=== PATIENT | male | born 1980 | race Caucasian/White ===

== ENCOUNTER 2018-03-08 22:31 | Emergency (ER) | payer SELFPAY ==
[~2018-03-08] VITALS: Ht 180.3 cm; Wt 70.5 kg
[~2018-03-08 22:31] MED LIST: NAPROSYN500 MG PO; PEN-VEE K,VEET500 MG PO
[2018-03-09 00:29] VITALS: BP 143/90
== END 2018-03-09 00:30 | disposition home or self-care (01) ==
LOC: EME 22:31
PROC: 2W3RX1Z Immobilization of Left Lower Leg using Splint (ICD-10-PCS; principal; 2018-03-08)
DX: S82.832A Other fracture of upper and lower end of left fibula, initial encounter for closed fracture (principal); W23.0XXA Caught, crushed, jammed, or pinched between moving objects, initial encounter; F17.200 Nicotine dependence, unspecified, uncomplicated
CPT/HCPCS: 73610; 99281; 99284